=== PATIENT | female | born 1955 | race Caucasian/White ===

== ENCOUNTER 2016-10-29 10:14 | Day surgery (SDC) | payer OTHER ==
[2016-10-28 11:54] LABS: BLOOD UREA NITROGEN 13 mg/dL (7-18)
[2016-10-28 12:00] LABS: ASPARTATE AMINO TRANSFERASE 25 U/L (15-37)
[~2016-10-29] VITALS: Ht 152.4 cm; Wt 63.6 kg
[~2016-10-29 10:14] MED LIST: AMIT10TA PO; CHOL500015 PO; CLON1TAB PO; CYAN50008 PO; ESTR2TAB PO; FLUO20CA19 PO; FLUT9.9S NS; GABA300C10 PO; ISOS30TA19 PO; MELO-184 PO; METO25TA35 PO; MULT-516 PO; OMEG1CAP26 PO; RABE20TA5 PO; ROSU20TA PO; SUCR1TAB26 PO; TRAM50TA2 PO; VALA500T4 PO; estradiol cream TP; estrogen patch TD; progesterone cream TP; testosterone cream TP
[2016-10-29] MEDS ORDERED: SODIUM CHLORIDE 0.9% 1,000 ML IV SCH ×2 (10:30→13:11)
[2016-10-29 10:33] VITALS: BP 131/80
[2016-10-29] MEDS ORDERED: MIDAZOLAM 1 MG/ML, 5ML ONE (12:14)
[2016-10-29] MEDS ORDERED: BIVALIRUDIN 250 MG ONE (12:14)
[2016-10-29] MEDS ORDERED: FENTANYL PF 100 MCG/2ML ONE (12:14)
[2016-10-29] MEDS ORDERED: VERAPAMIL 2.5 MG/ML, 2ML ONE (12:14)
[2016-10-29] MEDS ORDERED: HEPARIN 1,000 UNITS/ML, 10ML ONE (12:14)
[2016-10-29] MEDS ORDERED: TICAGRELOR 90 MG TABLET ONE (12:14)
[2016-10-29] MEDS ORDERED: LIDOCAINE 2%, 20ML ONE (12:14)
[2016-10-29] MEDS ORDERED: HYDROcodone/APAP 5/325 TABLET ONE (15:07)
[2016-10-29] MEDS ORDERED: HYDROcodone/APAP 5/325 TABLET PO ONE (15:30)
== END 2016-10-29 16:30 ==
LOC: CACL 10:14
PROVIDERS: ATTEND Internal Medicine Cardiovascular Disease
DX: I25.119 Atherosclerotic heart disease of native coronary artery with unspecified angina pectoris (principal); Z88.1 Allergy status to other antibiotic agents
CPT/HCPCS: 36415; 80053; 85025; 85610; 85730; 93005; 93458; 93571; 99156; C1769; C1894; J1644; J2250; J3010; J3490; J7030; Q9967; J0583

== ENCOUNTER → 2017-03-18 | Outpatient (CLI) | payer OTHER ==
[~2017-03-18] MED LIST changes: -ISOS30TA19 PO; +ISOS30TA21 PO; -MELO-184 PO; +MELO15TA24 PO; +RABE20TA18 PO; -RABE20TA5 PO; -SUCR1TAB26 PO; +SUCR1TAB33 PO
== END | disposition home or self-care (01) ==
LOC: CFH 14:16
PROVIDERS: ATTEND Internal Medicine
DX: I25.10 Atherosclerotic heart disease of native coronary artery without angina pectoris (principal)
CPT/HCPCS: 71250

== ENCOUNTER 2017-05-29 18:00 | Emergency (ER) | payer OTHER ==
[~2017-05-29] VITALS: Ht 152.4 cm; Wt 65.8 kg
[2017-05-29 18:02] VITALS: BP 131/80
== END 2017-05-29 19:26 | disposition home or self-care (01) ==
LOC: ED 19:10
DX: J20.8 Acute bronchitis due to other specified organisms (principal); B97.89 Other viral agents as the cause of diseases classified elsewhere; E78.5 Hyperlipidemia, unspecified; I10 Essential (primary) hypertension; I25.10 Atherosclerotic heart disease of native coronary artery without angina pectoris; Z79.82 Long term (current) use of aspirin; Z87.891 Personal history of nicotine dependence
CPT/HCPCS: 71046; 93005; 99284

== ENCOUNTER → 2017-07-24 | Outpatient (CLI) | payer OTHER | LOC: CARD 13:53 | PROVIDERS: ATTEND Nurse Practitioner | DX: J44.9 Chronic obstructive pulmonary disease, unspecified (principal) | CPT/HCPCS: 94060; 94618; 94726; 94729 ==

== ENCOUNTER 2018-11-24 15:31 | Outpatient (CLI) | payer OTHER | END 2018-11-24 23:59 | disposition home or self-care (01) | LOC: RAD 15:31 | PROVIDERS: ATTEND Nurse Practitioner | DX: J98.11 Atelectasis (principal) | CPT/HCPCS: 71250 ==